=== PATIENT | male | born 1955 | race Caucasian/White ===

== ENCOUNTER 2018-01-01 12:17 | Emergency (ER) | payer OTHER ==
--- OUTSIDE RECORDS SUMMARY | 2018-01-01 12:19 | XMS REPORT | Clinical Summary ---
:1955 Author Organization [facility] Address [address] [place] [address] Care Team Providers Name Role Phone Erwin Angel MD Primary Care Provider Unavailable Allergies No Known Allergies Medications Medication Sig Dispensed Refills Start Date End Date Status rivaroxaban Take 20 mg by 0 Active (XARELTO) 20 mg mouth daily. tablet fenofibrate Take 145 mg by 0 Active (TRICOR) 145 MG mouth daily. tablet rosuvastatin Take 20 mg by 0 Active (CRESTOR) 20 MG mouth daily. tablet omega Take 2 0 Active [id number] oil capsules by (FISH OIL) 1,000 mg mouth 3 (120 mg-180 mg) (three) times capsule a week. amIODarone Take 1 tablet 30 tablet 1 04/14/2017 Active (PACERONE) 200 MG (200 mg total) tablet by mouth daily. amIODarone Take 400 mg by 0 04/14/2017 Discontinued (PACERONE) 400 MG mouth daily. tablet tamsulosin (FLOMAX) Take 0.4 mg by 0 04/13/2017 Discontinued 0.4 mg mouth daily. capsule,extended release 24hr colchicine 0.6 mg Take 0.5 30 tablet 0 04/14/2017 05/14/2017 tablet tablets (0.3 mg total) by mouth 2 (two) times a day for 30 days. pantoprazole Take 1 tablet 30 tablet 0 04/15/2017 05/15/2017 (PROTONIX) 40 MG EC (40 mg total) tablet by mouth daily for 30 days. sucralfate Take 1 tablet 90 tablet 0 04/14/2017 05/14/2017 (CARAFATE) 1 gram (1 g total) by tablet mouth 3 (three) times a day before meals for 30 days. Active Problems Problem Noted Date Atypical atrial flutter 04/13/2017 Persistent atrial fibrillation 11/14/2016 Encounters Date Type Specialty Care Team Description 04/13/2017 Anesthesia Event Procedural Desiree Magana Cardiology AKraig, HANDHOLE MACHINE OPERATOR 04/13/2017 Surgery Procedural Gabriel Goldberg Ep complete ep study Cardiology MD jea Gonsalez ablation pulmonary vein [35071 (CPT)] 04/13/2017 - Hospital Encounter Cardiology Gabriel Goldberg Atypical atrial 04/14/2017 MD Wallace flutter after 12/31/2016 Family History Medical History Relation Name Comments Hypertension Mother Relation Name Status Comments Mother Social History Tobacco Use Types Packs/Day Years Used Date Never Smoker Smokeless Tobacco: Never Used Tobacco Cessation: Counseling Given: No Alcohol Use Drinks/Week oz/Week Comments Yes Sex Assigned at Date Recorded Not on file Job Start Date Occupation Industry Not on file Not on file Not on file Travel History Travel Start Travel End No recent travel history available. Last Filed Vital Signs Vital Sign Reading Time Taken Blood Pressure 117/76 04/14/2017 7:59 AM ORE CHARGER Pulse 63 04/14/2017 7:59 AM ORE CHARGER Temperature 36.2 C (97.1 F) 04/14/2017 7:59 AM ORE CHARGER Respiratory Rate 16 04/13/2017 6:32 PM ORE CHARGER Oxygen Saturation 97% 04/14/2017 7:59 AM ORE CHARGER Inhaled Oxygen Concentration - - Weight 86.6 kg (191 lb) 04/13/2017 6:31 AM ORE CHARGER Height 175.3 cm (5' 9") 04/13/2017 6:31 AM ORE CHARGER Body Mass Index 28.21 04/13/2017 6:31 AM ORE CHARGER Plan of Treatment Not on file Procedures Procedure Name Priority Date/Time Associated Comments Diagnosis PROTHROMBIN TIME WITH Routine 04/14/2017 5:30 Results for this INR AM ORE CHARGER procedure are in the results section. HC COMPLETE BLD COUNT Routine 04/14/2017 5:30 Results for this W/AUTO DIFF AM ORE CHARGER procedure are in the results section. ECG 12-LEAD Routine 04/14/2017 5:16 Results for this AM ORE CHARGER procedure are in the results section. ZZESTIMATED GFR Routine 04/14/2017 4:00 Results for this AM ORE CHARGER procedure are in the results section. BASIC METABOLIC PANEL Routine 04/14/2017 4:00 Results for this AM ORE CHARGER procedure are in the results section. ECG 12-LEAD Routine 04/13/2017 1:36 Results for this PM ORE CHARGER procedure are in the results section. EP COMPLETE EP STUDY Routine 04/13/2017 12:44 Atypical atrial Results for this W ABLATION PULMONARY PM ORE CHARGER flutter procedure are in VEIN the results section. IL AN ELECTIVE Routine 04/13/2017 8:35 ENDOTRACHEAL AIRWAY AM ORE CHARGER Procedure Note - Gloria Portillo MD - 04/13/2017 8:35 AM ORE CHARGER Airway Performed by: GLORIA PORTILLO Authorized by: GLORIA PORTILLO Location: OR Urgency: Elective Difficult Airway: No Anesthesiologist: GLORIA PORTILLO Resident/HANDHOLE MACHINE OPERATOR/AA: NATA MAGANA Performed by: resident/HANDHOLE MACHINE OPERATOR/AA Preoxygenated with 100% O2: Yes C-spine Precautions Maintained Throughout: Yes Mask Ventilation: Easy mask Final Airway Type: Endotracheal airway Final Endotracheal Airway: ETT Cuffed: Yes Technique Used: Direct laryngoscopy Devices/Methods Used in Placement: Intubating stylet Insertion Site: Oral Blade Type: Garcia Laryngoscope Blade/Videolaryngoscope Blade Size: 2 ETT Size (mm): 8.0 Cuff at minimum occlusion pressure: Yes Measured from: Lips ETT to Lips (cm): 22 Placement Verified by: CO2 detection, direct visualization and equal breath sounds Laryngoscopic view: Grade I - full view of glottis Rapid Sequence Induction (RSI): No Modified RSI: No Number of Attempts at Approach: 1 TYPE AND SCREEN STAT 04/13/2017 6:40 AM ORE CHARGER ECG 12-LEAD STAT 04/13/2017 6:29 AM ORE CHARGER after 12/31/2016 Results Prothrombin time with INR (04/14/2017 5:30 AM ORE CHARGER) Prothrombin time 25.9 (H) 12.0 - 15.0 sec [facility] DEPARTMENT OF PATHOLOGY AND GENOMIC MEDICINE INR 2.3 [facility] DEPARTMENT OF Comment: PATHOLOGY AND GENOMIC The International Normalized Ratio (INR) is a therapeutic MEDICINE monitoring tool for patients who are stable on oral anticoagulant therapy. An INR of 2.0-3.0 is suggested for deep vein thrombosis/pulmonary embolism. Specimen Blood Performing Organization Address City/State/Zipcode Phone Number [facility] DEPARTMENT OF PATHOLOGY AND [address] [place] [address] GENOMIC MEDICINE CBC with platelet and differential (04/14/2017 5:30 AM ORE CHARGER) WBC 9.26 4.50 - 11.00 k/uL [facility] DEPARTMENT OF PATHOLOGY AND GENOMIC MEDICINE RBC 4.16 (L) 4.40 - 6.00 m/uL [facility] DEPARTMENT OF PATHOLOGY AND GENOMIC MEDICINE HGB 12.5 (L) 14.0 - 18.0 g/dL [facility] DEPARTMENT OF PATHOLOGY AND GENOMIC MEDICINE HCT 37.7 (L) 41.0 - 51.0 % [facility] DEPARTMENT OF PATHOLOGY AND GENOMIC MEDICINE MCV 90.6 82.0 - 100.0 fL [facility] DEPARTMENT OF PATHOLOGY AND GENOMIC MEDICINE MCH 30.0 27.0 - 34.0 pg [facility] DEPARTMENT OF PATHOLOGY AND GENOMIC MEDICINE MCHC 33.2 31.0 - 37.0 g/dL [facility] DEPARTMENT OF PATHOLOGY AND GENOMIC MEDICINE RDW - SD 45.4 37.0 - 55.0 fL [facility] DEPARTMENT OF PATHOLOGY AND GENOMIC MEDICINE MPV 10.4 8.8 - 13.2 fL [facility] DEPARTMENT OF PATHOLOGY AND GENOMIC MEDICINE Platelet count 209 150 - 400 k/uL [facility] DEPARTMENT OF PATHOLOGY AND GENOMIC MEDICINE Nucleated RBC 0.00 /100 WBC [facility] DEPARTMENT OF PATHOLOGY AND GENOMIC MEDICINE Neutrophils 85.5 (H) 39.0 - 69.0 % [facility] DEPARTMENT OF PATHOLOGY AND GENOMIC MEDICINE Lymphocytes 10.0 (L) 25.0 - 45.0 % [facility] DEPARTMENT OF PATHOLOGY AND GENOMIC MEDICINE Monocytes 4.2 0.0 - 10.0 % [facility] DEPARTMENT OF PATHOLOGY AND GENOMIC MEDICINE Eosinophils 0.0 0.0 - 5.0 % [facility] DEPARTMENT OF PATHOLOGY AND GENOMIC MEDICINE Basophils 0.0 0.0 - 1.0 % [facility] DEPARTMENT OF PATHOLOGY AND GENOMIC MEDICINE Immature granulocytes 0.3Comment: 0.0 - 1.0 % [facility] DEPARTMENT OF "Immature PATHOLOGY AND GENOMIC granulocytes" MEDICINE (promyelocytes, myelocytes, metamyelocytes) Specimen Blood Performing Organization Address City/State/Zipcode Phone Number [facility] DEPARTMENT OF PATHOLOGY AND [address] [place] [address] [facility] ECG 12 lead (04/14/2017 5:16 AM ORE CHARGER)Only the most recent of3 resultswithin the time period is included. Ventricular rate 67 HM MUSE Atrial rate 67 HM MUSE IL interval 180 [facility] MUSE QRSD interval 124 HM MUSE QT interval 504 [facility] MUSE QTC interval 532 [facility] MUSE P axis 1 80 [facility] MUSE QRS axis 1 51 [facility] MUSE T wave axis 96 [facility] MUSE EKG impression Normal sinus rhythm-Nonspecific intraventricular conduction delay-Nonspecific T wave abnormality-Abnormal ECG-In automated comparison with ECG of 13-APR-2017 13:36,-No significant change was found-Elect [facility] MUSE ronically Signed By Eusebio Morris ([id number]) on 04/14/2017 6:35:35 PM Performing Organization Address [facility] Phone Number [facility] [address] [place] [address] Estimated GFR (04/14/2017 4:00 AM ORE CHARGER) GFR Non Af Amer 76 mL/min/1.73 m2 [facility] DEPARTMENT OF PATHOLOGY AND [employer] MEDICINE GFR Af Amer >90 mL/min/1.73 m2 [facility] DEPARTMENT OF Comment: PATHOLOGY AND GENOMIC Chronic kidney disease: <60 mL/min/1.73m2 MEDICINE Kidney failure: <15 mL/min/1.73m2 The estimated GFR is calculated from the IDMS-traceable Modification of Diet in Renal Disease Equation. The accuracy of the calculation is poor when the creatinine is normal. Calculated values >90 mL/min/1.73m2 are not reported. This equation has not been validated in children (<18 years), women, the elderly (>70 years), or ethnic groups other than Caucasians and Americans. Specimen Plasma specimen Performing Organization Address City/[facility] Phone Number [facility] DEPARTMENT OF PATHOLOGY AND [address] [place] [id number] [facility] Basic metabolic panel (04/14/2017 4:00 AM ORE CHARGER) Sodium 142 135 - 148 mEq/L [facility] DEPARTMENT OF PATHOLOGY AND GENOMIC MEDICINE Potassium 4.3 3.5 - 5.0 mEq/L [facility] DEPARTMENT OF PATHOLOGY AND GENOMIC MEDICINE Chloride 105 98 - 112 mEq/L [facility] DEPARTMENT OF PATHOLOGY AND GENOMIC MEDICINE CO2 20 (L) 24 - 31 mEq/L [facility] DEPARTMENT OF PATHOLOGY AND GENOMIC MEDICINE Anion gap 17 (H) 7 - 15 mEq/L [facility] DEPARTMENT OF PATHOLOGY Comment: AND [facility] Starting from May , anion gap calculation no longer incorporates potassium. Please note the change. BUN 19 8 - 23 mg/dL [facility] DEPARTMENT OF PATHOLOGY AND GENOMIC MEDICINE Creatinine 1.0 0.7 - 1.2 mg/dL [facility] DEPARTMENT OF PATHOLOGY AND GENOMIC MEDICINE Glucose 153 (H) 65 - 99 mg/dL [facility] DEPARTMENT OF PATHOLOGY AND GENOMIC MEDICINE Calcium 9.1 8.8 - 10.2 mg/dL [facility] DEPARTMENT OF PATHOLOGY AND GENOMIC MEDICINE Specimen Plasma specimen Performing Organization Address City/State/Zipcode Phone Number [facility] DEPARTMENT OF PATHOLOGY AND [address] [place] [address] [employer] MEDICINE Cv electrophysiology procedure (04/13/2017 12:44 PM ORE CHARGER) Narrative Performed At TRAINING EXECUTIVE: GILBERTO Goldberg MD COMPLICATIONS: None. ESTIMATED BLOOD LOSS: 10 mL. SPECIMEN REMOVED: None. ANESTHESIA: General. PROCEDURE PERFORMED: 1.Atrial fibrillation ablation with pulmonary vein isolation. 2.Extrapulmonary vein ablation. 3.Atrial flutter ablation separate from the prior mechanism. 4.Pharmacologic drug infusion. 5.Three-dimensional mapping. 6.Intracardiac echocardiogram. 7.Ultrasound-guided vascular access. 8.Arterial line placement. 9.Transseptal puncture. PREOPERATIVE DIAGNOSES: 1.Atypical atrial flutter. 2.Persistent atrial fibrillation, status post pulmonary vein ablation. POSTOPERATIVE DIAGNOSES: 1.Atypical atrial flutter. 2.Persistent atrial fibrillation, status post pulmonary vein ablation. HISTORY OF PRESENT ILLNESS: The patient is a 61-year-old gentleman with the above-noted medical history, who was referred for pulmonary vein ablation for recurrent atrial arrhythmias post pulmonary ablation. PROCEDURE IN DETAIL: The patient was brought to the EP lab in a fasting state.Informed consent was obtained.The patient was prepped and draped in the usual fashion. Ultrasound-guided vascular access was obtained in the right femoral vein, left femoral vein, and left femoral artery.Catheters were advanced including a decapolar catheter, placed in the coronary sinus, intracardiac echocardiogram, which was used to assist with transseptal puncture, monitor catheter positioning, monitor pericardial effusion, and exclude left atrial appendage clot, and recreate 3D geometry.Heparin bolus was given immediately after vascular access.Transseptal puncture was performed.At baseline, the patient presented in atrial flutter with a tachycardia cycle length of 260 milliseconds. Ablation was targeted along the LA roof and LA septum with termination of tachycardia.At baseline, pulmonary vein reconnection was present.The right pulmonary vein's posterior wall reconnection was also present.Hence, after termination of tachycardia, we proceeded to perform additional ablation to achieve isolation of the right pulmonary vein as well as posterior wall with LA floor and LA roof ablation.Posterior wall isolation was achieved confirmed with pacing and exit block.Anterior septal mitral block was also achieved confirmed with bidirectional pacing and differential site mapping.We then assessed for our CTI line, which was blocked from the previous ablation. FINDINGS: The patient's presenting rhythm was a roof dependent and mitral isthmus dependent atrial flutter at a tachycardia cycle length of 260 milliseconds. Termination was achieved with ablation along the LA roof and anteroseptal mitral line.Subsequent block was achieved along the mitral line with a conduction time across line of block of 200 milliseconds.Posterior wall isolation was achieved and reisolation of the right pulmonary veins was achieved.CTI block was present from the previous ablation with a conduction time across line of block of 175 milliseconds.No induced arrhythmias at the end of the procedure with double extra stimuli down to refractoriness or burst atrial pacing down to 220 milliseconds with and without isoproterenol.Mean airway pressure was measured at 19 mmHg.No evidence of pericardial effusion at the end of the case.Catheter ablation was performed using salcedo up to 30 to 40 unger with contact force between 5 to 35 grams.Close esophageal temperature monitoring was done with ablating along the posterior wall. CONCLUSION: 1.Successful reisolation of the right pulmonary veins. 2.Extrapulmonary vein ablation performed with posterior wall isolation. 3.Roof dependent and mitral isthmus dependent atrial flutter ablated with termination. 4.Bidirectional mitral isthmus block achieved across the anteroseptal mitral line.CTI block present from the previous ablation. 5.No induced arrhythmias with double atrial extrastimulation or burst atrial pacing with and without isoproterenol at the end of procedure with no reconnection of the pulmonary veins on isoproterenol. RECOMMENDATIONS: The patient will complete the appropriate postprocedural wound care and activity restriction. Performing Organization Address City/State/Zipcode Phone Number [facility] [address] [place] [address] Type and screen (04/13/2017 6:40 AM ORE CHARGER) ABO grouping A [facility] DEPARTMENT OF PATHOLOGY AND GENOMIC MEDICINE Rh type POS [facility] DEPARTMENT OF PATHOLOGY AND GENOMIC MEDICINE Antibody screen (gel) NEG [facility] DEPARTMENT OF PATHOLOGY AND GENOMIC MEDICINE Specimen Blood Performing Organization Address City/[facility] Phone Number [facility] DEPARTMENT OF PATHOLOGY AND [address] [place] [address] GENOMIC MEDICINE after 12/31/2016 Insurance Payer Benefit Plan / Group Subscriber ID Type Phone Address AETNA AETNA HMO,POS,EPO, MC/EC xxxxxxxxx HMO Advance Directives Patient has advance care planning documents on file. For more information, please contact:Los Blank[address] [place] [address]
[2018-01-01 12:48] LABS: Absolute Neutrophil 10.4 K/uL (1.8-8.0); Basophils % 0.5 % (0-1.3); Eosinophils % 1.8 % (0-4.4); Hematocrit 43.9 % (39.6-49.0); Lymphocytes % 14.3 % (15.3-44.8); MCH 30.4 pg (27.0-35.0); MPV 8.2 fL (7.6-11.3); Monocytes % 7.3 % (3.3-12.3); RBC Red Blood Cell Count 4.93 M/uL (4.33-5.43)
[2018-01-01] MEDS ORDERED: dilTIAZem HCl 25 MG/5 ML VIAL IV ONE (12:51)
[2018-01-01 12:56] LABS: Protime INR 1.11
[2018-01-01] MEDS ORDERED: DILTIAZEM 125 MG in NS 125 ML IVPB SCH (13:00)
[2018-01-01 13:12] LABS: ALT/SGPT 36 U/L (12-78); AST/SGOT 22 U/L (15-37); Albumin 4.1 g/dL (3.4-5.0); Alkaline Phosphatase 76 U/L (45-117); BUN Blood Urea Nitrogen 15 mg/dL (7-18); Bicarbonate 24 mmol/L (21-32); Bilirubin Total 0.6 mg/dL (0.2-1.0); Glucose Level 109 mg/dL (74-106); Magnesium 2.1 mg/dL (1.8-2.4); NT PRO-BNP 514 pg/mL (<125); Potassium 4.1 mmol/L (3.5-5.1); Sodium Level 140 mmol/L (136-145); Troponin (Emerg Dept Use Only) < 0.02 ng/mL (0.0-0.045)
--- NOTE | 2018-01-01 13:37 | RAD REPORT ---
EXAM DESCRIPTION: Sher Single View01/01/2018 1:27 pm CLINICAL HISTORY: Chest pain COMPARISON: none FINDINGS: The lungs appear clear of acute infiltrate. The heart is mildly enlarged IMPRESSION: No acute abnormalities displayed
--- NOTE | 2018-01-01 14:01 | EKG ---
Test Date: 2018-01-01 Test Time: 12:28:31 Chairman President And Chief Executive Officer: ALINE MEASUREMENT RESULTS: Intervals: Rate: 154 [place]: QRSD: 86 QT: 300 QTc: 480 Parker: P: 113 [place]: QRS: 22 T: 162 INTERPRETIVE STATEMENTS: Atrial flutter with 2:[address] & T wave abnormality, consider lateral ischemia Abnormal ECG Compared to ECG 01/20/2010 14:59:55 ST (T wave) deviation now present Possible ischemia now present Sinus bradycardia no longer present Left ventricular hypertrophy no longer present Early repolarization no longer present Electronically Signed On 01-01-18 14:00:19 BUSINESS PROPOSAL REP by Prosper Strong
[2018-01-01] MEDS ORDERED: DILTIAZEM HCL 60 MG TAB PO ONE (17:00)
--- NOTE | 2018-01-01 18:29 | ER ---
Nurse's Notes [facility] Name: Ritchie Joyner Age: 62 yrs Sex: Male : 1955 Arrival Date: 01/01/2018 Time: 12:18 Bed 7 Private MD: Jessy Angel H Diagnosis: Afib with RVR. Presentation: 01/01 12:19 Presenting complaint: Patient states: fatigue and generally not feeling well x 2-3 ss days. Pt believed he was coming down with the flu, was seen in clinic at work when it was discovered his resting HR was 155. Pt has a history of A flutter and Afib which he had two ablations for. Denies CP/ SOB. Transition of care: patient was not received from another setting of care. Onset of symptoms is unknown. Risk Assessment: Do you want to hurt yourself or someone else? Patient reports no desire to harm self or others. Initial Sepsis Screen: Does the patient meet any 2 criteria? HR > 90 bpm. Does the patient have a suspected source of infection? No. Patient's initial sepsis screen is negative. Care prior to arrival: EKG obtained prior at clinic, on paper chart. 12:19 Method Of Arrival: Ambulatory ss 12:19 Acuity: JACOB 2 ss Historical: - Allergies: 12:33 No Known Allergies; ss - Home Meds: 12:36 fenofibrate oral oral [Active]; Crestor oral oral [Active]; ss - PMHx: 12:33 Atrial Fib; aFlutter; ss 12:36 High Cholesterol; ss - PSHx: 12:33 cardiac ablation x2; ss - Immunization history:: Adult Immunizations up to date, Adult Immunizations up to date. - Social history:: Smoking status: Patient/guardian denies using tobacco, Smoking status: Patient/guardian denies using tobacco. - Ebola Screening: : Patient denies exposure to infectious person Patient denies travel to an Ebola-affected area in the 21 days before illness onset. Screenin:33 Abuse screen: Denies threats or abuse. Denies injuries from another. Nutritional hb screening: No deficits noted. Tuberculosis screening: No symptoms or risk factors identified. Fall Risk None identified. Assessment: 12:32 General: Appears in no apparent distress. Behavior is calm, cooperative. Pain: Denies hb pain. Neuro: Level of Consciousness is awake, alert, obeys commands, Oriented to person, place, time, situation. Cardiovascular: Heart tones S1 S2 present Capillary refill < 3 seconds Patient's skin is warm and dry. Rhythm is atrial fibrillation with rapid ventricular response. Respiratory: Reports cough that is non-productive, Airway is patent Trachea midline Respiratory effort is even, unlabored, Respiratory pattern is regular, symmetrical, Breath sounds are clear bilaterally. GI: No signs and/or symptoms were reported involving the gastrointestinal system. : No signs and/or symptoms were reported regarding the genitourinary system. EENT: No signs and/or symptoms were reported regarding the EENT system. Derm: Skin is pink, warm \T\ dry. Musculoskeletal: No signs and/or symptoms reported regarding the musculoskeletal system. 13:30 Reassessment: Patient appears in no apparent distress at this time. Patient and/or hb family updated on plan of care and expected duration. Pain level reassessed. Patient is alert, oriented x 3, equal unlabored respirations, skin warm/dry/pink. Cardizem continues at 5mg/hr. 14:05 Reassessment: HR 102-115, Cardizem increased to 10mg/hr. hb 14:30 Reassessment: Patient appears in no apparent distress at this time. Patient and/or hb family updated on plan of care and expected duration. Pain level reassessed. HR 105-117, Cardizem increased to 15mg/hr per Dr. Ngo. 15:30 Reassessment: Patient appears in no apparent distress at this time. Patient is alert, hb oriented x 3, equal unlabored respirations, skin warm/dry/pink. HR 85-95, Cardizem infusion continues at 15mg/hr. 17:10 Reassessment: called [facility] [place] who requested a 30 minute extension as ss they have not gotten a call back from the accepting physician. Vital Signs: 12:33 BP 143 / 117; Pulse 155; Resp 16; Temp 97.8(O); Pulse Ox 98% on R/A; Weight 83.46 kg; ss Height 5 ft. 9 in. (175.26 cm); Pain 0/10; 13:00 BP 135 / 94; Pulse 103; Resp 15; Pulse Ox 100% on R/A; Pain 0/10; hb 14:00 BP 138 / 88; Pulse 105; Resp 16; Pulse Ox 100% on R/A; hb 14:30 BP 133 / 99; Pulse 117; Resp 15; Pulse Ox 100% on R/A; Pain 0/10; hb 15:30 BP 127 / 90; Pulse 86; Resp 14; Pulse Ox 98% on R/A; Pain 0/10; hb 16:15 BP 136 / 90; Pulse 89; Resp 16; Pulse Ox 100% on R/A; hb 17:00 BP 155 / 108; Pulse 77; Resp 15; Pulse Ox 100% on R/A; Pain 0/10; hb 18:04 BP 128 / 92; Pulse 79; Resp 12; Pulse Ox 96% ; bp 12:33 Body Mass Index 27.17 (83.46 kg, 175.26 cm) ss ED Course: 12:18 Patient arrived in ED. as 12:18 Jessy Angel DO is Private Physician. as 12:24 Jordin Ngo MD is Attending Physician. ps1 12:31 Rosalie Bustillo RN is Primary Nurse. hb 12:31 EKG done, by rfid technician. reviewed by Jordin Ngo MD. at1 12:32 Inserted saline lock: 18 gauge in right antecubital area, using aseptic technique. hb Blood collected. 12:32 Patient has correct armband on for positive identification. Placed in gown. Bed in low hb position. Call light in reach. Side rails up X 1. rod placer on. Pulse ox on. NIBP on. 12:33 Triage completed. ss 12:33 Arm band placed on right wrist. ss 13:28 XRAY Chest (1 view) In Process Unspecified. EDMS 18:29 Report given to MARIIA HARDY \T\ NAIMA TRENT [id number] A. bp Administered Medications: Discontinued: Cardizem 5 mg/hr IV at calculated rate continuous; (standard dilution 125 mg diltiazem mixed in 100mL NS; final concentration 1mg/mL) 12:45 Drug: Cardizem 10 mg Route: IVP; Site: right antecubital; bp 13:10 Follow up: Response: No adverse reaction; Cardiac rhythm changed hb 13:10 Drug: Cardizem 5 mg/hr {Note: BP 135/94, HR 103.} Route: IV; Rate: calculated rate; hb Site: right antecubital; 14:05 Follow up: Rate change 10 mg/hr; HR 110 hb 15:36 Follow up: Rate change 15 mg/hr; HR 117 hb 17:11 Drug: Cardizem 60 mg Route: PO; hb 18:31 Follow up: Response: No adverse reaction bp Intake: Outcome: 18:27 ER care complete, transfer ordered by . ps1 19:11 Patient left the ED. ak1 Signatures: Dispatcher [employer] Sabine Page Shelby, RN RN Cintia Dennis, site safety representative EKG Tat1 Rosio Amador RN RN ak1 Rosalie Bustillo RN RN hb Peltier, Brian, RN RN bp Singer, Phillip, MD MD ps1
--- NOTE | 2018-01-01 18:29 | EDPHYS ---
Physician Documentation [facility] Name: Ritchie Joyner Age: 62 yrs Sex: Male : 1955 Arrival Date: 01/01/2018 Time: 12:18 Bed 7 Private MD: Jessy Angel H ED Physician Jordin Ngo HPI: 01/01 13:13 This 62 yrs old Male presents to ER via Ambulatory with complaints of ps1 Tachycardia. 13:13 patient has a history of atrial fibrillation s/p ablation x3. Dr. Goldberg with [facility]. ps1 Starting having flu like illness over last couple of days after returning to [facility]. He is off of rate and rhythm meds since the ablation. Takes an aspirin. Takes caffeine in the form of Excedrin. Has additionally been taking cough medicine. . Historical: - Allergies: 12:33 No Known Allergies; ss - Home Meds: 12:36 fenofibrate oral oral [Active]; Crestor oral oral [Active]; ss - PMHx: 12:33 Atrial Fib; aFlutter; ss 12:36 High Cholesterol; ss - PSHx: 12:33 cardiac ablation x2; ss - Immunization history:: Adult Immunizations up to date, Adult Immunizations up to date. - Social history:: Smoking status: Patient/guardian denies using tobacco, Smoking status: Patient/guardian denies using tobacco. - Ebola Screening: : Patient denies exposure to infectious person Patient denies travel to an Ebola-affected area in the 21 days before illness onset. ROS: 13:13 Eyes: Negative for injury, pain, redness, and discharge, Respiratory: Negative for ps1 shortness of breath, cough, wheezing, and pleuritic chest pain, Abdomen/GI: Negative for abdominal pain, nausea, vomiting, diarrhea, and constipation, Back: Negative for injury and pain, MS/Extremity: Negative for injury and deformity, Skin: Negative for injury, rash, and discoloration, Neuro: Negative for headache, weakness, numbness, tingling, and seizure. 13:13 Constitutional: Positive for body aches, fatigue. 13:13 Cardiovascular: Positive for palpitations. Exam: 13:13 Constitutional: This is a well developed, well nourished patient who is awake, alert, ps1 and in no acute distress. Head/Face: Normocephalic, atraumatic. Eyes: Pupils equal round and reactive to light, extra-ocular motions intact. Lids and lashes normal. Conjunctiva and sclera are non-icteric and not injected. Chest/axilla: Normal chest wall appearance and motion. Nontender with no deformity. No lesions are appreciated. Respiratory: Lungs have equal breath sounds bilaterally, clear to auscultation and percussion. No rales, rhonchi or wheezes noted. No increased work of breathing, no retractions or nasal flaring. Abdomen/GI: Soft, non-tender, with normal bowel sounds. No distension or tympany. No guarding or rebound. No evidence of tenderness throughout. Skin: Warm, dry with normal turgor. Normal color with no rashes, no lesions, and no evidence of cellulitis. MS/ Extremity: Pulses equal, no cyanosis. Neurovascular intact. Full, normal range of motion. Neuro: Awake and alert, GCS 15, oriented to person, place, time, and situation. Cranial nerves II-XII grossly intact. Sensory grossly intact. 13:13 Cardiovascular: Rate: tachycardic, actual rate is 155 bpm, Rhythm: irregularly irregular, Pulses: no pulse deficits are appreciated. Vital Signs: 12:33 BP 143 / 117; Pulse 155; Resp 16; Temp 97.8(O); Pulse Ox 98% on R/A; Weight 83.46 kg; ss Height 5 ft. 9 in. (175.26 cm); Pain 0/10; 13:00 BP 135 / 94; Pulse 103; Resp 15; Pulse Ox 100% on R/A; Pain 0/10; hb 14:00 BP 138 / 88; Pulse 105; Resp 16; Pulse Ox 100% on R/A; hb 14:30 BP 133 / 99; Pulse 117; Resp 15; Pulse Ox 100% on R/A; Pain 0/10; hb 15:30 BP 127 / 90; Pulse 86; Resp 14; Pulse Ox 98% on R/A; Pain 0/10; hb 16:15 BP 136 / 90; Pulse 89; Resp 16; Pulse Ox 100% on R/A; hb 17:00 BP 155 / 108; Pulse 77; Resp 15; Pulse Ox 100% on R/A; Pain 0/10; hb 18:04 BP 128 / 92; Pulse 79; Resp 12; Pulse Ox 96% ; bp 12:33 Body Mass Index 27.17 (83.46 kg, 175.26 cm) ss MDM: 13:25 Patient medically screened. ps1 18:28 Data reviewed: vital signs, nurses notes, lab test result(s), EKG, and as a result, I ps1 will transfer patient to EP at [facility]. Data interpreted: masonry supervisor: Pulse oximetry:. Counseling: I had a detailed discussion with the patient and/or guardian regarding: the historical points, exam findings, and any diagnostic results supporting the discharge/admit diagnosis, the need to transfer to another facility, for higher level of care. ED course: patients HR improved to 70's, transitioned to oral 60mg Cardizem. . 01/01 12:36 Order name: CBC with Diff; Complete Time: 13:25 ps1 01/01 12:36 Order name: Magnesium; Complete Time: 13:25 ps1 01/01 12:36 Order name: NT PRO-BNP; Complete Time: 13:25 ps1 01/01 12:36 Order name: PT-INR; Complete Time: 13:25 ps1 01/01 12:36 Order name: Troponin (emerg Dept Use Only); Complete Time: 13:25 ps1 01/01 12:36 Order name: CMP; Complete Time: 13:25 ps1 01/01 12:36 Order name: XRAY Chest (1 view); Complete Time: 13:54 ps1 01/01 12:36 Order name: EKG; Complete Time: 12:37 ps1 01/01 12:36 Order name: Cardiac monitoring; Complete Time: 12:51 ps1 01/01 12:36 Order name: EKG - Nurse/Tech; Complete Time: 12:51 ps1 01/01 12:36 Order name: IV Saline Lock; Complete Time: 12:52 ps1 01/01 12:36 Order name: Labs collected and sent; Complete Time: 12:52 ps1 01/01 12:36 Order name: O2 Per Protocol; Complete Time: 12:51 ps1 01/01 12:36 Order name: O2 Sat Monitoring; Complete Time: 12:51 ps1 EC:13 Rate is 154 beats/min. Rhythm is irregular. QRS [place] is Normal. QRS interval is normal. ps1 QT interval is normal. No Q waves. T waves are Normal. No ST changes noted. Clinical impression: Atrial Fibrillation and rapid ventricular response. Interpreted by me. Administered Medications: Discontinued: Cardizem 5 mg/hr IV at calculated rate continuous; (standard dilution 125 mg diltiazem mixed in 100mL NS; final concentration 1mg/mL) 12:45 Drug: Cardizem 10 mg Route: IVP; Site: right antecubital; bp 13:10 Follow up: Response: No adverse reaction; Cardiac rhythm changed hb 13:10 Drug: Cardizem 5 mg/hr {Note: BP 135/94, HR 103.} Route: IV; Rate: calculated rate; hb Site: right antecubital; 14:05 Follow up: Rate change 10 mg/hr; HR 110 hb 15:36 Follow up: Rate change 15 mg/hr; HR 117 hb 17:11 Drug: Cardizem 60 mg Route: PO; hb 18:31 Follow up: Response: No adverse reaction bp Disposition: 01/01/18 18:27 Transfer ordered to [facility]. Diagnosis is Afib with RVR.. - Reason for transfer: Higher level of care. - Accepting physician is [facility]. - Condition is Stable. - Problem is an acute exacerbation. - Symptoms have improved. Critical care time excluding procedures: 18:28 Critical care time: Bedside Care: 30 minutes, Consultation: 10 minutes. Total time: 40 ps1 minutes Signatures: Dispatcher [employer] EDMS Lavonne Chance RN RN Rosio Amador RN RN ak1 Rosalie Bustillo RN RN Eliu Jesus, RN ANTONY bp Jordin Ngo MD MD ps1 Corrections: (The following items were deleted from the chart) 18:28 13:13 Rate is 154 beats/min. Rhythm is irregular. QRS [place] is Normal. QRS interval is ps1 normal. QT interval is normal. No Q waves. T waves are Normal. No ST changes noted. Clinical impression: Atrial Fibrillation. Interpreted by me. ps1 19:11 18:27 01/01/2018 18:27 Transfer ordered to [facility]. Diagnosis is ak1 Afib with RVR.. Reason for transfer: Higher level of care. Accepting physician is [facility]. Condition is Stable. Problem is an acute exacerbation. Symptoms have improved. ps1
== END 2018-01-01 19:11 | disposition short-term general hospital (02) ==
LOC: ER 12:17
DX: I48.0 Paroxysmal atrial fibrillation (principal); R94.31 Abnormal electrocardiogram [ECG] [EKG]; E78.00 Pure hypercholesterolemia, unspecified; Z79.899 Other long term (current) drug therapy
CPT/HCPCS: 36415; 71045; 80053; 83735; 83880; 84484; 85025; 85610; 93005; 96374; 96375; 99284